=== PATIENT | female | born 1975 | race Caucasian/White ===

== ENCOUNTER 2018-05-19 18:31 | Emergency (ER) | payer OTHER, MEDICAID ==
[~2018-05-19] VITALS: Ht 152.4 cm; Wt 60.0 kg
[2018-05-19 19:53] VITALS: BP 98/67
[2018-05-19] MEDS ORDERED: NITROGLYCERIN SINGLE TAB 0.4 MG SL ONE (19:56)
[2018-05-19] MEDS ORDERED: ASPIRIN 81 MG TABLET CHEW ONE (19:56)
[2018-05-19] MEDS ORDERED: NITROGLYCERIN SINGLE TAB 0.4 MG SL PRN (20:00)
[2018-05-19] MEDS ORDERED: ASPIRIN 81 MG TABLET CHEW PO ONE (20:00)
[2018-05-19] MEDS ORDERED: SODIUM CHLORIDE 0.9% 1,000 ML IV ONE (20:00)
[2018-05-19 20:19] LABS: BASOPHILS # (AUTO) 0.03 x10^3/uL (0-0.1); BASOPHILS % (AUTO) 1 % (0-1); EOSINOPHILS # (AUTO) 0.12 x10^3/uL (0-0.4); EOSINOPHILS % (AUTO) 2 % (1-7); LYMPHOCYTES # (AUTO) 2.59 x10^3/uL (1-3.4); LYMPHOCYTES % (AUTO) 42 % (22-44); MD NO; MEAN CORPUSCULAR HEMOGLOBIN 30.2 pg (27.0-34.8); MEAN CORPUSCULAR HGB CONC 33.4 g/dL (32.4-35.8); MEAN CORPUSCULAR VOLUME 90.6 fL (80-100); MEAN PLATELET VOLUME 8.6 fL (7.4-10.4); MONOCYTES # (AUTO) 0.47 x10^3/uL (0.2-0.8); MONOCYTES % (AUTO) 8 % (2-9); NEUTROPHILS # (AUTO) 2.91 x10^3/uL (1.8-6.8); NEUTROPHILS % (AUTO) 48 % (42-75); PLATELET COUNT 239 x10^3/uL (130-400); RED BLOOD COUNT 4.51 x10^6/uL (3.82-5.3)
[2018-05-19 20:26] LABS: ALBUMIN 3.8 g/dL (3.4-5.0); ANION GAP 6 mmol/L (5-15); CALCIUM 8.9 mg/dL (8.5-10.1); CHLORIDE 109 mmol/L (98-107)
[2018-05-19 20:33] LABS: ALANINE AMINOTRANSFERASE 16 U/L (12-78); ALKALINE PHOSPHATASE 71 U/L (45-117); BILIRUBIN,TOTAL 0.6 mg/dL (0.2-1.0); CREATININE 0.88 mg/dL (0.55-1.02); TOTAL PROTEIN 7.3 g/dL (6.4-8.2); TROPONIN I < 0.015 ng/mL (0.000-0.045)
[2018-05-19 21:32] LABS: MICROSCOPIC AUTO
[2018-05-19 21:39] LABS: CULTURE INDICATED? YES
== END 2018-05-19 23:09 | disposition home or self-care (01) ==
LOC: ED 18:48
DX: R07.89 Other chest pain (principal); F17.210 Nicotine dependence, cigarettes, uncomplicated; E11.9 Type 2 diabetes mellitus without complications
CPT/HCPCS: 36415; 71045; 80053; 81001; 84484; 85025; 87086; 93005; 99285; J7030